=== PATIENT | female | born 1945 | race Hispanic/Latino ===

== ENCOUNTER 2017-02-06 09:34 | Day surgery (SDC) | payer MEDICARE ==
[~2017-02-06 09:34] MED LIST: ADRENALIN IV ONE; CLEOCIN 600 MG/50 mL 600 MG/50 ML BAG IV NR; NACL 0.9% IR ONE
[2017-02-06] MEDS ORDERED: ADRENALIN ONE ×3 (10:15→10:56)
--- NOTE | 2017-02-06 10:24 | Anesthesia Consultation ---
Anesthesia Consult and Med Hx Date of service: 02/06/17 - Airway Anesthetic Teeth Evaluation: Good, Crowns ROM Head & Neck: Inadequate Mental/Hyoid Distance: Adequate Mallampati Class: Class II Intubation Access Assessment: Probably Good - Pulmonary Exam CTA: Yes - Cardiac Exam Cardiac Exam: RRR - Pre-Operative Health Status ASA Pre-Surgery Classification: ASA3 Proposed Anesthetic Plan: General Nerve Block: IS - Pre-Anesthesia Comment Pre-Anesthesia Comments: echo 01/31-EF 60%. stress test 08/04- negative ischemia. carotid u/s- mild to mod plaque. EKG- AV paced. Cardiac and Medical clearence on chart - Cardiovascular System Hx Hypertension: Yes Hx Coronary Artery Disease: Yes Hx Angina: No Hx Percutaneous Transluminal Coronary Angioplasty (PTCA): Yes (2010) Hx Pacemaker: Yes (2008) Hx Valvular Heart Disease: Yes - Gastrointestinal Hx Gastroesophageal Reflux Disease: Yes
[2017-02-06] MEDS ORDERED: MARCAINE-EPI/PF 0.5%-1:200,000 INFILTRATI ONE (10:39)
[2017-02-06] MEDS ORDERED: DECADRON ONE (10:39)
--- NOTE | 2017-02-06 10:41 | Anesthesia Day of Surgery ---
Anesthesia Day of Surgery - Day of Surgery Patient Examined: Yes Patient H&P Reviewed: Yes Patient is NPO: Yes Beta Blockers: Yes
[2017-02-06] MEDS ORDERED: SUBLIMAZE ONE (10:50)
[2017-02-06] MEDS ORDERED: NACL 0.9% 1000 ML 1,000 ML IV SCH (11:00)
[2017-02-06] MEDS ORDERED: PEPCID PO NR (11:00)
[2017-02-06] MEDS ORDERED: VERSED IV NR (11:00)
[2017-02-06] MEDS ORDERED: DIPRIVAN 10 MG/ML IV ONE (11:02)
[2017-02-06] MEDS ORDERED: ePHEDrine SULFATE ONE (11:41)
[2017-02-06] MEDS ORDERED: NACL 0.9% IR ONE (11:45)
[2017-02-06] MEDS ORDERED: ADRENALIN IV ONE (11:45)
[2017-02-06] MEDS ORDERED: NACL 0.9% 1000 ML 1,000 ML ONE (12:16)
[2017-02-06] MEDS ORDERED: XYLOCAINE MPF 2% ONE (12:21)
--- NOTE | 2017-02-06 12:26 | Short Stay Summary ---
Short Stay Documentation Date of service: 02/06/17 - Allergies and Medications Current Medications: Allergies budesonide [From Symbicort] Allergy (Verified 02/02/17 15:50) Unknown formoterol fumarate [From Symbicort] Allergy (Verified 02/02/17 15:50) Unknown levofloxacin [From Levaquin] Allergy (Verified 02/02/17 15:49) Hives Sulfa (Sulfonamide Antibiotics) Allergy (Verified 02/02/17 15:48) Hives adhesive tape Adverse Reaction (Verified 02/02/17 15:49) BLISTERS pregabalin [From Lyrica] Adverse Reaction (Verified 02/02/17 15:49) Anaphylaxis Home Medications Medication Instructions Recorded Confirmed Last Taken Type Amlodipine Besylate [Norvasc] 5 mg PO DAILY 02/02/17 02/06/17 02/05/17 History Aspirin EC [Aspirin Enteric Coated 81 mg PO QDAY 02/02/17 02/02/17 01/31/17 History TAB] AtorvaSTATin [Lipitor] 20 mg PO QHS 02/02/17 02/06/17 02/05/17 History Carvedilol [Coreg] 12.5 mg PO BID 02/02/17 02/06/17 02/06/17 04:00 History Clopidogrel [Plavix] 75 mg PO QDAY 02/02/17 02/02/17 01/31/17 History Fexofenadine/Pseudoephedrine 1 each PO DAILY 02/02/17 02/06/17 02/03/17 History [Diane-D 24 Hour Tablet] HYDROcodone/APAP 10-325 [Merino 1 each PO Q8HR PRN 02/02/17 02/06/17 02/06/17 04: 00 History 10/325] Pantoprazole [Protonix] 40 mg PO QDAY 02/02/17 02/06/17 02/05/17 History Ranitidine HCl [Zantac 150 MG TAB] 150 mg PO DAILY 02/02/17 02/06/17 02/05/17 History Sennosides/Docusate Sodium 1 each PO DAILY 02/02/17 02/06/17 02/05/17 History [Senna-S Tablet] Tetracycline HCl 500 mg PO QID 02/02/17 02/06/17 02/05/17 History Valsartan [Diovan] 160 mg PO QDAY 02/02/17 02/06/17 02/06/17 04:00 History Active Medications Famotidine (Pepcid) 20 mg PO PREOP NR Stop: 02/06/17 23:59 Clindamycin HCl (Cleocin 600 Mg/50 Ml) 600 mg in 50 mls @ 100 mls/hr IV PREOP NR PRN Reason: Protocol Stop: 02/06/17 23:00 Sodium Chloride (Nacl 0.9% 1000 Ml) 1,000 mls @ 42 mls/hr IV DIRECT BRYANT Midazolam HCl (Versed) 2 mg IV PREOP NR Stop: 02/06/17 23:59 - Brief post op/procedure progress note Date of procedure: 02/06/17 Pre-op diagnosis: persistent left shoulder pain ac joint arthritis adhesive capsulitis Post-op diagnosis: same Procedure: left shoulder arthroscopy, subacromial decompression, distal clavicle excision, lysis of adhesions, manipulation under anesthesia, debriedment extensive subacromial bursitis, debriedment partial rotator cuff tear Anesthesia: GETA Findings: adhesive capsulitis, partial rotator cuff tear, extensive subacromial bursisits Surgeon: JACQUELINE MILLER Estimated blood loss: none Pathology: none Condition: stable - Hospital course Hospital course: no complications - Disposition Condition at discharge: Good Disposition: DC-01 TO HOME OR SELFCARE Short Stay Discharge Plan Follow up with: SABINA ROCA [Other] - 7 Days
[2017-02-06] MEDS ORDERED: ZOFRAN ONE (12:53)
--- NOTE | 2017-02-06 13:48 | Operative Report ---
PREOPERATIVE DIAGNOSES: Persistent left shoulder pain, marked loss of range of motion with adhesive capsulitis, advanced acromioclavicular joint arthritic changes causing severe impingement upon the rotator cuff. POSTOPERATIVE DIAGNOSES: Persistent left shoulder pain, advanced acromioclavicular joint arthritic change with type 3 acromion causing severe impingement upon the rotator cuff, partial thickness articular-sided rotator cuff tear involving less than 10% with the supraspinatus tendon, moderate glenohumeral articular cartilage arthritic changes, extensive subacromial bursitis, marked loss of range of motion/adhesive capsulitis. PROCEDURE: Left shoulder arthroscopy, subacromial decompression, distal clavicle excision, debridement of extensive subacromial bursitis, debridement of partial thickness rotator cuff tear, lysis of adhesions, manipulation under anesthesia. SURGEON: Luis Felipe Camara MD. ELECTRICAL LINESWORKER: Mica Maynard, certified optician as well as Scar Leone III, MD. PREOPERATIVE ANESTHESIA: General plus an interscalene block to the operative left upper extremity. PREOPERATIVE ANTIBIOTICS: Clindamycin 600 mg IV within 1 hour of skin incision. DVT PROPHYLAXIS: Open toe, thigh-high compression stockings and SCD pumps to bilateral lower extremities. OPERATIVE COMPLICATIONS: None. OPERATIVE HISTORY AND PHYSICAL: This is a 71-year-old female, who has had persistent progressively worsening left shoulder pain, which has failed to improve despite extensive nonoperative treatment. The pain is markedly limiting her activities of daily living and she reports severe pain. After failing to improve with nonoperative treatment, progressively worsening of her subjective as well as objective findings with marked limitation with normal activities of daily living. We discussed treatment alternatives of surgical and nonsurgical including risks and benefits of both. After a long lengthy discussion, the patient opted to proceed with operative intervention. The patient cannot have preoperative MRI given her pacemaker, but given her subjective and objective findings as well as a positive impingement test. The patient opted to proceed with operative intervention. This will entail a left shoulder arthroscopy, subacromial decompression, distal clavicle excision, lysis of adhesions, manipulation under anesthesia, possible rotator cuff repair and surgery was indicated. The risks of which were discussed to include but not exclusive of infection, blood loss, nerve damage, loss of range of motion, persistent pain. The patient understood. All questions were answered. She wished to proceed with operative intervention. OPERATIVE PROCEDURE: The patient was seen in preoperative holding area, which point informed consent was reviewed and appropriate left upper extremity was identified and then marked. Anesthesia then performed an interscalene block of the left upper extremity. After confirmation of adequate analgesia the left upper extremity, the patient was then brought back to the operating room and placed supine on a standard operating room table, at which point, general anesthesia was administered and an endotracheal tube was inserted. After confirmation of adequate general anesthesia and checking for appropriate placement of endotracheal tube, we then made sure that all bony prominences were well padded. There were no wrinkles in the compression stockings on bilateral lower extremities and SCD pumps were applied to bilateral lower extremities. The patient was sat up in the beach chair position using beach chair position, which was already in place and her head was secured in nice neutral position. The well right arm was secured in neutral position as well with the aid of the well arm magdaleno. A pillow was placed beneath the posterior aspect of bilateral lower extremities placed in slight flexion of the hips and knees to make sure the popliteal fossa was free and clear. We then examined the left upper extremity under anesthesia. The patient had marked loss of range of motion for flexion only to 160, abduction to 140, external rotation of 40 degrees, internal rotation of 40 degrees. On examination under anesthesia, left upper extremity was then prepped and draped in the usual sterile fashion. After prepping and draping, a timeout was called. The left upper extremity was identified. The skin had been marked in the preoperative holding area. I began the procedure by first making a standard posterior portal with #15 blade. Once the portal was established, a cannula with blunt trocar was inserted into the intra-articular aspect of the glenohumeral joint. This went without difficulty or damage to articular cartilage. Once in place, arthroscopic camera was immediately placed in the interspace shoulder joint, which demonstrated anterior portal by first inserting an 18-guage spinal needle between subscap and biceps tendons. Under direct arthroscopic visualization was confirmed to be in appropriate position, a 15-blade was then used to establish anterior portal. Once the portals were established blunt trocar was inserted to widen the portal site followed by an arthroscopic probe. We began our diagnostic arthroscopy in the anterior aspect of the shoulder joint. The patient was having normal subscapularis tendon. The biceps tendon was seen to be intact. Shoulder had normal range of motion at the origin of the bicep and the superior aspect of labrum and some degenerative wear, which was debrided. There was some degenerative wear of the anterior labrum, which was debrided using standard technique with 4.0 meniscal shaver. There was moderately advanced articular cartilage loss, mostly entire glenohumeral joint. Inspection of the posterior labrum showed to be intact and stable and probe. Inspection of axillary recess showed to be free and clear of all loose bodies. Inspection of the posterior spike humeral head showed to be normal bare area without Hill-Sachs lesion. Inspection of rotator cuff showed there to be partial thickness tear of the supraspinatus tendon encompassing less than 10% of the width of the tendon. This was gently debrided using a 4.0 meniscal shaver. Once completed, arthroscopic pump was turned off to make sure there was good hemostasis and once this was confirmed, it was transposed from the glenohumeral joint using the arthroscopic cannula. Following this, all the arthroscopic instrumentation was removed from the glenohumeral joint and then placed in subacromial space. Once the subacromial space was rather severe extensive subacromial bursitis. A third incision was made in the lateral aspect of the shoulder in line with the distal clavicle away from axillary nerve. Once the incision was made, we debrided the extensive subacromial bursitis using 4.0 meniscal shaver and hemostasis was achieved with the Arthrocare ablation wand. Following this, arthroscopic instrumentation was removed. Then, gentle manipulation under anesthesia was performed following a gentle manipulation under anesthesia. The patient had forward flexion 180, abduction 180, external rotation of 60 degrees, internal rotation of 60 degrees with no evidence of instability. Following examination under anesthesia, the arthroscopic camera was then placed back into the subacromial space. Once in the subacromial space, we saw there was a large type 3 acromion with marked acromioclavicular arthritic changes. The arm was placed in full range of motion under direct arthroscopic visualization, we saw there was severe impingement of the rotator cuff undersurface of the acromion. The soft tissue was removed from the undersurface of the acromion using Arthrocare ablation wand and then using a 4.0 hooded barrel bur, carried a subacromial decompression standard fashion from inferior to superior posterior to anterior, leaving a residual anterior hook. Inspection of distal clavicle showed this also be arthritic. Then using 4.0 hooded barrel bur, we carried out a distal clavicle excision of approximately 6 to 8 mm using 4.0 hooded barrel bur. Following this, arthroscopic pump turned off to make sure there was good hemostasis. Following this, the arm was again placed a full range of motion under direct arthroscopic visualization. Again, we saw there was no impingement of the rotator cuff undersurface of acromion or distal clavicle. We then turned our attention to the bursal side rotator cuff, which was inspected in its entirety as well as probed and seen to be stable without any tearing. Following this, arthroscopic pump was turned off to make there was good hemostasis. Once this was confirmed, a straight full suction of subacromial space using arthroscopic cannula. Follows all arthroscopic instrumentation was removed. The 3 portal sites were closed with 3-0 nylon in simple fashion. Adaptic, 4 x 4s, ABD, paper tape. Small abduction sling was applied. The patient sat down in beach chair in supine position, was awakened from general anesthesia without complications and taken to recovery room in stable condition. Standard postop orders were written. JOB# [id number] VS/NTS
--- NOTE | 2017-02-06 14:58 | Post Anesthesia Evaluation ---
- Post Anesthesia Evaluation Patient Participated: Yes Airway Patent: Yes Stable Respiratory Function: Yes Temp > 96.8F: Yes Pain Manageable: Yes Adequeate Hydration: Yes Anesthesia Complications: No Block Receding Appropriately: Not Applicable
[2017-02-06 15:28] VITALS: BP 105/58
== END 2017-02-06 14:35 | disposition home or self-care (01) ==
LOC: OR 09:34
PROVIDERS: ATTEND Orthopaedic Surgery
DX: S46.012A Strain of muscle(s) and tendon(s) of the rotator cuff of left shoulder, initial encounter (principal); M75.52 Bursitis of left shoulder; M75.02 Adhesive capsulitis of left shoulder; M19.012 Primary osteoarthritis, left shoulder; I10 Essential (primary) hypertension; K21.9 Gastro-esophageal reflux disease without esophagitis; I25.10 Atherosclerotic heart disease of native coronary artery without angina pectoris; Z95.0 Presence of cardiac pacemaker; Z98.61 Coronary angioplasty status; Z88.2 Allergy status to sulfonamides; Z88.8 Allergy status to other drugs, medicaments and biological substances; Z91.09 Other allergy status, other than to drugs and biological substances; Z79.899 Other long term (current) drug therapy; X58.XXXA Exposure to other specified factors, initial encounter
CPT/HCPCS: 29823; A4217; J0171; J1100; J2250; J2405; J2704; J3010; J7030; L1830